=== PATIENT | male | born 1980 | race Caucasian/White ===

== ENCOUNTER 2020-11-13 04:45 | Emergency (ER) | payer MEDICARE ==
[~2020-11-13 04:45] MED LIST: ALDACTONE 25MG25 MG PO; ALDACTONE25 MG PO; AMIODARONE HCL200 MG PO; ASPIR 8181 MG PO; BACTROBAN CREAM15 GM TOP; BRILINTA 90 MG90 MG PO; BUPRENORPHIN-N1 EACH SL; CLARITIN10 M2 PO; COMP-AIR NEBUL1 EACH MC; CORDARONE 200M200 MG PO; DOXYCYCLINE HY100 M2 PO; DOXYCYCLINE HY100 MG PO; ELIQUIS 5 MG TAB5 MG PO; ENTRESTO 24 MG1 EACH PO; ENTRESTO 49 MG1 EACH PO; FISH OIL 1,0001 EAC1 PO; FISH OIL 1,0001 EACH PO; K-DUR TAB 10 M10 MEQ PO; LASIX 40 MG TAB40 MG PO; LASIX20 MG PO; LIPITOR TAB 2020 MG PO; LISINOPRIL5 MG PO; LOPRESSOR 25 MG25 MG PO; MELATON; METOLAZONE5 MG PO; NEURONTIN 400400 MG PO; NEURONTIN400 MG PO; NITROSTAT0.3 MG SL; NITROSTAT0.4 MG SL; NORCO 5-325 TA1 EACH PO; OMNICEF 300 MG300 MG PO; PROTONIX40 MG PO; ROBITUSSIN PO; SEROQUEL XR300 MG PO; SEROQUEL300 MG PO; SUBUTEX 8 MG TAB8 MG PO; TRAZODONE HCL100 MG PO; VENTOLIN HFA 66.7 GM INH; WELLBUTRIN 100100 MG PO; ZAROXOLYN/DIULO5 MG PO; ZITHROMAX500 MG PO
[2020-11-13 05:14] LABS: HEMOGLOBIN 14.2 gm/dl (14.0-17.5); RED BLOOD COUNT 5.04 M/UL (4.20-5.50); WHITE BLOOD COUNT 17.4 K/UL (4.5-11.0)
[2020-11-13 05:36] LABS: BUN/CREATININE RATIO 13 (0-10)
== END 2020-11-13 11:00 | disposition home or self-care (01) ==
LOC: ER1 04:45
PROVIDERS: Emergency Medicine
DX: J18.9 Pneumonia, unspecified organism (principal); R07.89 Other chest pain; R59.0 Localized enlarged lymph nodes; R79.89 Other specified abnormal findings of blood chemistry; F19.10 Other psychoactive substance abuse, uncomplicated; I11.0 Hypertensive heart disease with heart failure; I50.9 Heart failure, unspecified; J44.9 Chronic obstructive pulmonary disease, unspecified; F17.200 Nicotine dependence, unspecified, uncomplicated; Z79.01 Long term (current) use of anticoagulants; Z95.5 Presence of coronary angioplasty implant and graft; Z95.0 Presence of cardiac pacemaker; Z20.822 Contact with and (suspected) exposure to COVID-19
CPT/HCPCS: 0240U; 71045; 80053; 80307; 81001; 82550; 82553; 83690; 83735; 83874; 83880; 84484; 85025; 85610; 85730; 87040; 93005; 94664; 96365; 96366; 96367; 96375; 99285; J0456; J0696; J2930; Q9967

== ENCOUNTER 2021-04-12 00:48 | Inpatient (IN) | payer OTHER ==
[~2021-04-12] VITALS: Ht 175.3 cm; Wt 95.3 kg
[2021-04-12 01:18] LABS: HEMOGLOBIN 15.3 gm/dl (14.0-17.5); RED BLOOD COUNT 5.29 M/UL (4.20-5.50); WHITE BLOOD COUNT 12.9 K/UL (4.5-11.0)
[2021-04-12 01:45] LABS: BUN/CREATININE RATIO 14 (0-10)
[2021-04-12] MEDS ORDERED: PACERONE200 MG PO (03:33)
[2021-04-12] MEDS ORDERED: LOPRESSOR 25 MG25 MG PO (03:35)
[2021-04-12] MEDS ORDERED: LASIX TAB 20 MG20 MG PO (03:35)
[2021-04-12 08:00] LABS: HEMOGLOBIN 14.5 gm/dl (14.0-17.5); RED BLOOD COUNT 5.1 M/UL (4.20-5.50); WHITE BLOOD COUNT 15.8 K/UL (4.5-11.0)
[2021-04-12 08:01] LABS: BUN/CREATININE RATIO 12 (0-10)
[2021-04-12] MEDS ORDERED: OMEPRAZOLE20 M1 PO (09:09)
[2021-04-12] MEDS ORDERED: ENTRESTO 49 MG1 EACH PO (16:26)
[2021-04-12] MEDS ORDERED: K-DUR TAB 20 M20 MEQ PO (18:05)
[2021-04-13 02:22] LABS: HEMOGLOBIN 13.8 gm/dl (14.0-17.5); RED BLOOD COUNT 5.08 M/UL (4.20-5.50)
[2021-04-13 02:44] LABS: BUN/CREATININE RATIO 18 (0-10)
[2021-04-13] MEDS ORDERED: LOPRESSOR 25 MG25 MG PO (10:30)
[2021-04-13] MEDS ORDERED: ISOSORBIDE MONO30 MG PO (10:44)
[2021-04-13] MEDS ORDERED: AMIODARONE HCL200 MG PO ×2 (10:44→14:40)
[2021-04-13] MEDS ORDERED: PACERONE200 MG PO ×2 (14:34→14:36)
[2021-04-14 08:16] LABS: THYROXINE (T4) 6.6 ug/dL (4.5-12.0)
== END 2021-04-13 16:14 | disposition short-term general hospital (02) | DRG 309 ==
LOC: ER1 00:48 → CDU 02:22 → PROG CARE 07:38
PROVIDERS: Internal Medicine; Internal Medicine Cardiovascular Disease; Physician Assistant Medical; ADMIT Internal Medicine
DX: I47.1 Supraventricular tachycardia (principal); I50.22 Chronic systolic (congestive) heart failure; I11.0 Hypertensive heart disease with heart failure; I25.5 Ischemic cardiomyopathy; I25.10 Atherosclerotic heart disease of native coronary artery without angina pectoris; R07.9 Chest pain, unspecified; D72.829 Elevated white blood cell count, unspecified; Z20.822 Contact with and (suspected) exposure to COVID-19; M54.2 Cervicalgia; F19.10 Other psychoactive substance abuse, uncomplicated; F32.9 Major depressive disorder, single episode, unspecified; F41.9 Anxiety disorder, unspecified; I27.20 Pulmonary hypertension, unspecified; E78.5 Hyperlipidemia, unspecified; F17.200 Nicotine dependence, unspecified, uncomplicated; I25.2 Old myocardial infarction; Z95.810 Presence of automatic (implantable) cardiac defibrillator; Z82.49 Family history of ischemic heart disease and other diseases of the circulatory system; Z72.89 Other problems related to lifestyle
CPT/HCPCS: ECHO; 36415; 71045; 80048; 80053; 80061; 80307; 82550; 82553; 83036; 83735; 83874; 83880; 84100; 84436; 84439; 84443; 84480; 84484; 85025; 85027; 93005; 93306; 99285; U0002